=== PATIENT | male | born 1950 | race Caucasian/White ===

== ENCOUNTER 2017-05-07 15:51 | Emergency (ER) | payer BC ==
[2017-05-07] MEDS ORDERED: Multivitamin Inj 10 ML, Thiamine HCL 100 MG, Magnesium Sulfate 2 GM, Folic Acid 1 MG in... IV ONE (16:10)
[2017-05-07 16:38] LABS: HEMATOCRIT 38.2 % (41.0-60); HEMOGLOBIN 12.2 gm/dL (12-16); MEAN CELL VOLUME 82.3 fl (80-99); MEAN CORPUSCULAR HEMOGLOBIN 26.4 pg (26.0-30.0); MEAN CORPUSCULAR HGB CONC 32.1 pg (28.0-36.0); MEAN PLATELET VOLUME 7.4 fl; PLATELET COUNT 221 Th/cmm (150-400); RED BLOOD COUNT 4.64 Mil/cmm (4.30-5.70); RED CELL DISTRIBUTION WIDTH 27.2 % (11.5-20.0); WHITE BLOOD COUNT 4.9 Th/cmm (4.8-10.8)
--- NOTE | 2017-05-07 16:50 | ED Physician Chart ---
ED Chief Complaint/HPI - Patient Information Date Seen:: 05/07/17 Time Seen:: 15:47 Chief Complaint:: Pt reportedly was intoxicated in the public. History of Present Illness:: Brought in by ambulance because pt was found to be intoxicated with alcohol in the public. Pt is agitated at times but otherwise in no distress. Pt has no specific complaint. Pt is uncooperative, and thus H & P are limited. Allergies:: Allergies Allergy/AdvReac Type Severity Reaction Status Date / Time No Known Allergies Allergy Verified 05/07/17 15:56 Vitals:: Vital Signs - 8 hr 05/07/17 15:55 Temp 97.9 F HR 69 RR 16 BP 103/68 O2 Sat % 97 Historian:: Patient Family MD/PCP:: unknown LMP:: N/A Review:: Nurse's Note Reviewed ED Review of Systems - Review of Systems General/Constitutional: Other (Pt does not cooperate for ROS) ED Past Medical History - Past Medical History Past Medical History: HTN, Other (hepatitis) Family History: Other (Pt does not cooperate to provide info on FHx.) Social History: Other (Pt does not cooperate to provide info on SHx.) Surgical History: other (Pt does not cooperate to provide info on Surgical Hx.) Medication: Reviewed Family Medical History - Family Member Mother History Unknown: Yes ED Physical Exam - Physical Examination General/Constitutional: Awake, Well-developed, well-nourished, Alert Other Gen/Cons comments:: Breathes comfortably, speaks clearly. Pt screams and becomes agitated from time to time. Head: Atraumatic Eyes: Lids, conjuctiva normal, PERRL, EOMI Skin: No rash, No ecchymosis, No lymphadenopathy ENMT: External ears, nose nl, Nasal exam nl, Oropharynx nl Neck: Nontender, Full ROM w/o pain, No JVD, No nuchal rigidity, No mass, No stridor Respiratory: Nl effort/Exclusion, Clear to Auscultation, No Wheeze/Rhonchi/Rales Cardio Vascular: RRR, No murmur, gallop, rubs GI: No tenderness/rebounding/guarding, No organomegaly, No hernia, Normal BS's, Nondistended, No mass/bruits Other GI comments:: Abdomen is soft. Extremities: No edema Neuro/Psych: Alert/oriented (oriented x 3), No focal deficits Other Neuro/Psych comments:: Spontaneous movements noticed in all four extremities. Pt does not cooperate for full neurological exam. ED Labs/Radiology/EKG Results - Lab Results Results: Laboratory Tests 05/07/17 16:30 WBC 4.9 RBC 4.64 Hgb 12.2 Hct 38.2 L MCV 82.3 MCH 26.4 MCHC Differential 32.1 RDW 27.2 H Plt Count 221 MPV 7.4 Laboratory Tests 05/07/17 05/07/17 05/07/17 16:30 16:30 16:30 WBC 4.9 RBC 4.64 Hgb 12.2 Hct 38.2 L MCV 82.3 MCH 26.4 MCHC Differential 32.1 RDW 27.2 H Plt Count 221 MPV 7.4 PT 9.9 INR 0.95 PTT (Actin FS) 24.1 L Sodium 135 L Potassium 3.4 L Chloride 104 Carbon Dioxide 25.4 Anion Gap 9.0 BUN 11 Creatinine 0.7 Est GFR ( Amer) > 60.0 Est GFR (Non-Af Amer) > 60.0 BUN/Creatinine Ratio 15.7 Glucose 98 POC Glucose Calcium 9.5 Total Bilirubin 0.5 AST 26 ALT 25 Alkaline Phosphatase 137 H Creatine Kinase 34 Troponin I Total Protein 8.8 H Albumin 4.3 Globulin 4.5 Albumin/Globulin Ratio 1.0 Urine Source Urine Color Urine Clarity Urine pH Ur Specific F[place]ardo Urine Protein Urine Glucose (UA) Urine Ketones Urine Blood Urine Nitrate Urine Bilirubin Urine Urobilinogen Ur Leukocyte Esterase Urine RBC Urine WBC Ur Epithelial Cells Urine Bacteria Salicylates < 25.0 L Urine Opiates Screen Urine Methadone Screen Acetaminophen < 10.0 L Ur Barbiturates Screen Ur Tricyclics Screen Ur Phencyclidine Scrn Amphetamines Screen U Methamphetamines Scrn U Benzodiazepines Scrn U Cocaine Metab Screen U Cannabinoids Screen Ethyl Alcohol 232 H 05/07/17 05/07/17 05/07/17 16:30 16:32 16:32 WBC RBC Hgb Hct MCV MCH MCHC Differential RDW Plt Count MPV PT INR PTT (Actin FS) Sodium Potassium Chloride Carbon Dioxide Anion Gap BUN Creatinine Est GFR ( Amer) Est GFR (Non-Af Amer) BUN/Creatinine Ratio Glucose POC Glucose Calcium Total Bilirubin AST ALT Alkaline Phosphatase Creatine Kinase Troponin I 0.02 Total Protein Albumin Globulin Albumin/Globulin Ratio Urine Source CATH Urine Color STRAW Urine Clarity CLEAR Urine pH 6.0 Ur Specific Fajardo <= 1.005 Urine Protein NEGATIVE Urine Glucose (UA) NEGATIVE Urine Ketones NEGATIVE Urine Blood NEGATIVE Urine Nitrate NEGATIVE Urine Bilirubin NEGATIVE Urine Urobilinogen 0.2 Ur Leukocyte Esterase NEGATIVE Urine RBC NONE SEEN Urine WBC NONE SEEN Ur Epithelial Cells NONE SEEN Urine Bacteria NONE SEEN Salicylates Urine Opiates Screen NEGATIVE Urine Methadone Screen NEGATIVE Acetaminophen Ur Barbiturates Screen NEGATIVE Ur Tricyclics Screen NEGATIVE Ur Phencyclidine Scrn NEGATIVE Amphetamines Screen NEGATIVE U Methamphetamines Scrn NEGATIVE U Benzodiazepines Scrn POSITIVE H U Cocaine Metab Screen NEGATIVE U Cannabinoids Screen NEGATIVE Ethyl Alcohol 05/07/17 17:12 WBC RBC Hgb Hct MCV MCH MCHC Differential RDW Plt Count MPV PT INR PTT (Actin FS) Sodium Potassium Chloride Carbon Dioxide Anion Gap BUN Creatinine Est GFR ( Amer) Est GFR (Non-Af Amer) BUN/Creatinine Ratio Glucose POC Glucose 111 H Calcium Total Bilirubin AST ALT Alkaline Phosphatase Creatine Kinase Troponin I Total Protein Albumin Globulin Albumin/Globulin Ratio Urine Source Urine Color Urine Clarity Urine pH Ur Specific F[place]ardo Urine Protein Urine Glucose (UA) Urine Ketones Urine Blood Urine Nitrate Urine Bilirubin Urine Urobilinogen Ur Leukocyte Esterase Urine RBC Urine WBC Ur Epithelial Cells Urine Bacteria Salicylates Urine Opiates Screen Urine Methadone Screen Acetaminophen Ur Barbiturates Screen Ur Tricyclics Screen Ur Phencyclidine Scrn Amphetamines Screen U Methamphetamines Scrn U Benzodiazepines Scrn U Cocaine Metab Screen U Cannabinoids Screen Ethyl Alcohol Laboratory Last Values WBC 4.9 Th/cmm (4.8-10.8) 05/07/17 16:30 RBC 4.64 Mil/cmm (4.30-5.70) 05/07/17 16:30 Hgb 12.2 gm/dL (12-16) 05/07/17 16:30 Hct 38.2 % (41.0-60) L 05/07/17 16:30 MCV 82.3 fl (80-99) 05/07/17 16:30 MCH 26.4 pg (26.0-30.0) 05/07/17 16:30 MCHC Differential 32.1 pg (28.0-36.0) 05/07/17 16:30 RDW 27.2 % (11.5-20.0) H 05/07/17 16:30 Plt Count 221 Th/cmm (150-400) 05/07/17 16:30 MPV 7.4 fl 05/07/17 16:30 Neutrophils (Manual) 41 % (40-80) 05/07/17 16:30 Lymphocytes 44 % (20-50) 05/07/17 16:30 Monocytes 9 % (2-10) 05/07/17 16:30 Basophils 6 % (0-3) H 05/07/17 16:30 Platelet Estimate ADEQUATE (NORMAL) 05/07/17 16:30 Platelet Morphology NORMAL (NORMAL) 05/07/17 16:30 Anisocytosis 3+ 05/07/17 16:30 RBC Morph Micro Appear ABNORMAL (NORMAL) 05/07/17 16:30 PT 9.9 SECONDS (9.5-11.5) 05/07/17 16:30 INR 0.95 (0.5-1.4) 05/07/17 16:30 PTT (Actin FS) 24.1 SECONDS (26.0-38.0) L 05/07/17 16:30 Sodium 135 mEq/L (136-145) L 05/07/17 16:30 Potassium 3.4 mEq/L (3.5-5.1) L 05/07/17 16:30 Chloride 104 mEq/L (98-107) 05/07/17 16:30 Carbon Dioxide 25.4 mEq/L (21.0-31.0) 05/07/17 16:30 Anion Gap 9.0 (7.0-16.0) 05/07/17 16:30 BUN 11 mg/dL (7-25) 05/07/17 16:30 Creatinine 0.7 mg/dL (0.7-1.3) 05/07/17 16:30 Est GFR ( Amer) > 60.0 ml/min (>90) 05/07/17 16:30 Est GFR (Non-Af Amer) > 60.0 ml/min 05/07/17 16:30 BUN/Creatinine Ratio 15.7 05/07/17 16:30 Glucose 98 mg/dL (70-105) 05/07/17 16:30 POC Glucose 111 MG/DL (70 - 105) H 05/07/17 17:12 Calcium 9.5 mg/dL (8.6-10.3) 05/07/17 16:30 Total Bilirubin 0.5 mg/dL (0.3-1.0) 05/07/17 16:30 AST 26 U/L (13-39) 05/07/17 16:30 ALT 25 U/L (7-52) 05/07/17 16:30 Alkaline Phosphatase 137 U/L (34-104) H 05/07/17 16:30 Creatine Kinase 34 U/L (30-223) 05/07/17 16:30 Troponin I 0.02 ng/mL (0.01-0.05) 05/07/17 16:30 Total Protein 8.8 gm/dL (6.0-8.3) H 05/07/17 16:30 Albumin 4.3 gm/dL (4.2-5.5) 05/07/17 16:30 Globulin 4.5 gm/dL 05/07/17 16:30 Albumin/Globulin Ratio 1.0 (1.0-1.8) 05/07/17 16:30 TSH 2.95 uIU/ml (0.34-5.60) 05/07/17 16:30 Urine Source CATH 05/07/17 16:32 Urine Color STRAW 05/07/17 16:32 Urine Clarity CLEAR (CLEAR) 05/07/17 16:32 Urine pH 6.0 (4.6 - 8.0) 05/07/17 16:32 Ur Specific Fajardo <= 1.005 (1.005-1.030) 05/07/17 16:32 Urine Protein NEGATIVE mg/dL (NEGATIVE) 05/07/17 16:32 Urine Glucose (UA) NEGATIVE mg/dL (NEGATIVE) 05/07/17 16:32 Urine Ketones NEGATIVE mg/dL (NEGATIVE) 05/07/17 16:32 Urine Blood NEGATIVE (NEGATIVE) 05/07/17 16:32 Urine Nitrate NEGATIVE (NEGATIVE) 05/07/17 16:32 Urine Bilirubin NEGATIVE (NEGATIVE) 05/07/17 16:32 Urine Urobilinogen 0.2 E.U./dL (0.2 - 1.0) 05/07/17 16:32 Ur Leukocyte Esterase NEGATIVE (NEGATIVE) 05/07/17 16:32 Urine RBC NONE SEEN /hpf (0-5) 05/07/17 16:32 Urine WBC NONE SEEN /hpf (0-5) 05/07/17 16:32 Ur Epithelial Cells NONE SEEN /lpf (FEW) 05/07/17 16:32 Urine Bacteria NONE SEEN /hpf (NONE SEEN) 05/07/17 16:32 Salicylates < 25.0 mg/L (30.0-100.0) L 05/07/17 16:30 Urine Opiates Screen NEGATIVE (NEGATIVE) 05/07/17 16:32 Urine Methadone Screen NEGATIVE (NEGATIVE) 05/07/17 16:32 Acetaminophen < 10.0 ug/mL (10.0-30.0) L 05/07/17 16:30 Ur Barbiturates Screen NEGATIVE (NEGATIVE) 05/07/17 16:32 Ur Tricyclics Screen NEGATIVE (NEGATIVE) 05/07/17 16:32 Ur Phencyclidine Scrn NEGATIVE (NEGATIVE) 05/07/17 16:32 Amphetamines Screen NEGATIVE (NEGATIVE) 05/07/17 16:32 U Methamphetamines Scrn NEGATIVE (NEGATIVE) 05/07/17 16:32 U Benzodiazepines Scrn POSITIVE (NEGATIVE) H 05/07/17 16:32 U Cocaine Metab Screen NEGATIVE (NEGATIVE) 05/07/17 16:32 U Cannabinoids Screen NEGATIVE (NEGATIVE) 05/07/17 16:32 Ethyl Alcohol 108 mg/dL (0-10) H 05/07/17 21:01 - EKG Interpretations EKG Time:: 16:42 Rate & Rhythm: NSR with VR 64 Comments:: No acute ischemic changes. ED Septic Shock - . Is Septic Shock (SBP<90, OR Lactate>4 mmol\\L) present?: No - <6hrs of presentation: Vital Signs: Vital Signs - 8 hr 05/07/17 15:55 Temp 97.9 F HR 69 RR 16 BP 103/68 O2 Sat % 97 ED Reassessment (Disposition) - Reassessment Reassessment:: 1819 Pt has been repeatedly evaluated. Pt is more awake. He states that he is ready "to give up on life". Pt denies any H.I. Pt also requests to have pain medication for his chronic low back pain from old injury. 2129 Pt remains stable and comfortable. Repeat ethanol level is 108. Pt is medically cleared for psych evaluation. [id number] I was just notified by nursing staff that pt left and did not wait to discuss with me. Pt eloped without completion of this ER visit. [place] [employer] as well as [place] [employer] are to be notified per nursing staff regarding pt's elopment. Reassessment Condition:: Improved - Diagnosis Diagnosis:: Alcohol intoxication, stable and resolving. Depression with concern of suicidal ideation Mild hypokalemia. Stable. - Patient Disposition Discharge/Transfer:: Elope/AWOL Time:: 23:15 Condition at Disposition:: Stable ED Discharge Plan - Patient Disposition Admit/Discharge/Transfer: AGAINST MEDICAL ADVICE
[2017-05-07 16:51] LABS: INR 0.95 (0.5-1.4); PROTHROMBIN TIME (TEST) 9.9 SECONDS (9.5-11.5)
[2017-05-07] MEDS ORDERED: Thiamine 100 mg/mL 2mL Vial ONE (16:51)
[2017-05-07] MEDS ORDERED: Magnesium Sulfate 1 gm/2 mL 2mL Vial IV ONE (16:51)
[2017-05-07] MEDS ORDERED: Multivitamin Inj 10 mL Vial IV ONE (16:52)
[2017-05-07 16:54] LABS: ACETAMINOPHEN < 10.0 ug/mL (10.0-30.0); ALKALINE PHOSPHATASE 137 U/L (34-104); BILIRUBIN,TOTAL 0.5 mg/dL (0.3-1.0); BUN - UREA NITROGEN 11 mg/dL (7-25); BUN/CREATININE RATIO 15.7; CALCIUM SERUM 9.5 mg/dL (8.6-10.3); CARBON DIOXIDE 25.4 mEq/L (21.0-31.0); CHLORIDE 104 mEq/L (98-107); CREATININE - SERUM 0.7 mg/dL (0.7-1.3); GLUCOSE 98 mg/dL (70-105); POTASSIUM SERUM 3.4 mEq/L (3.5-5.1); SGOT 26 U/L (13-39); SGPT/ALT 25 U/L (7-52); SODIUM SERUM 135 mEq/L (136-145)
[2017-05-07 17:12] LABS: URINE BILIRUBIN NEGATIVE (NEGATIVE); URINE BLOOD NEGATIVE (NEGATIVE); URINE GLUCOSE (UA) NEGATIVE (NEGATIVE); URINE KETONE NEGATIVE (NEGATIVE); URINE PROTEIN NEGATIVE (NEGATIVE); URINE UROBILINOGEN 0.2 E.U./dL (0.2 - 1.0)
[2017-05-07 17:25] LABS: URINE COLOR STRAW
[2017-05-07 17:26] LABS: AMPHETAMINE URINE NEGATIVE (NEGATIVE); BARBITURATES URINE NEGATIVE (NEGATIVE); METHADONE URINE NEGATIVE (NEGATIVE); URINE BACTERIA NONE SEEN /hpf (NONE SEEN); URINE EPITHELIAL CELLS NONE SEEN /lpf (FEW); URINE RBC NONE SEEN /hpf (0-5); URINE WBC NONE SEEN /hpf (0-5)
[2017-05-07] MEDS ORDERED: Potassium Chloride 20 mEq ER Tab PO ONE ×2 (17:32→17:37)
[2017-05-07 17:48] LABS: ANISOCYTOSIS 3+; BASOPHIL 6 % (0-3); NEUTROPHILS 41 % (40-80); PLATELET ESTIMATE ADEQUATE (NORMAL); PLATELET MORPHOLOGY NORMAL (NORMAL)
== END 2017-05-07 23:15 | disposition left against medical advice (07) ==
LOC: ER 15:51
DX: F10.129 Alcohol abuse with intoxication, unspecified (principal); F32.9 Major depressive disorder, single episode, unspecified; I10 Essential (primary) hypertension; E87.6 Hypokalemia
CPT/HCPCS: 99285; 96365; 96366; 96375; 93005; 84484; 36415; 36416; 82948; 80307; 84443; 85007; 85027; 85610; 81001; 80329 ×2; 80320 ×2; 82550; 80053; J2060; J3411; J3475; J7030; X6226; X6598; Z7610